=== PATIENT | female | born 1985 | race African-American/Black ===

== ENCOUNTER 2024-10-17 23:33 | Emergency (ER) | payer MEDICAID, OTHER ==
[~2024-10-17] VITALS: Ht 170.2 cm; Wt 123.4 kg
[2024-10-18 01:57] LABS: APPEARANCE,URINE SLIGHTLY CLOUDY (CLEAR); BLOOD, URINE 2+ Ery/uL (NEGATIVE); LEUKOCYTE ESTERASE ,URINE 2+ (NEGATIVE); NITRITE, URINE NEGATIVE (NEGATIVE); UGLUCOSE NEGATIVE (NEGATIVE)
[2024-10-18 02:11] LABS: ADD URINE CULTURE YES
[2024-10-18 02:12] LABS: COARSE GRANULAR CASTS,URINE Few /LPF (None Seen); SQUAMOUS EPITHELIAL CELL,UR Moderate /HPF (None Seen)
[2024-10-18] MEDS ORDERED: CEFTRIAXONE 1 G VIAL ONE (03:45)
[2024-10-18] MEDS ORDERED: AZITHROMYCIN 250 MG TABLET ONE (03:45)
[2024-10-18] MEDS ORDERED: DOXY100T2 PO (03:56)
[2024-10-18] MEDS: CEFTRIAXONE 1 G VIAL IM ONE (04:03)
[2024-10-18] MEDS: AZITHROMYCIN 250 MG TABLET PO ONE (04:03)
[2024-10-18 04:22] LABS: PLATELET COUNT (AUTO) 213 K/uL (150-450); RED BLOOD CELL COUNT(AUTO) 6.13 MIL/uL (4.0-5.2); RED CELL DISTRIBUTION WIDTH 13.6 % (11.5-15.0); WHITE BLOOD COUNT (AUTO) 7.7 K/uL (4.3-11.0)
[2024-10-18 04:27] LABS: CALCIUM, SERUM 8.5 mg/dL (8.5-10.1); CREATININE 0.7 mg/dL (0.6-1.3); SODIUM SERUM 136.0 mmol/L (136-145); UREA NITROGEN, BLOOD 11.0 mg/dL (7-18)
[2024-10-18 04:33] LABS: ASPARTATE AMINOTRANSFERASE 22.0 U/L (15-37); TOTAL PROTEIN, SERUM 7.2 g/dL (6.4-8.2)
[2024-10-18 05:36] VITALS: BP 132/80; TEMP 98.5; O2SAT 96
[2024-10-18 16:12] LABS: HIV-1/2 ANTIBODY NON REACTIVE (NONREACTIVE)
[2024-10-19 04:07] LABS: RAPID PLASMA REAGIN QUAL. Non Reactive (Non Reactive)
[2024-10-20 04:06] LABS: CHLAMYDIA TRACHOMATIS NAA Negative (Negative); NEISSERIA GONORRHOEAE NAA Negative (Negative)
== END 2024-10-18 05:38 | disposition home or self-care (01) ==
LOC: ER 23:35
DX: N34.2 Other urethritis (principal); Z60.2 Problems related to living alone
CPT/HCPCS: 99283; 86593; 86592; 96372; 85025; 87040; 87086; 81001; 36415; 80053; 87806; 86695; 87491; 87591; J0696